=== PATIENT | female | born 1955 | race Caucasian/White ===

== ENCOUNTER 2018-03-31 15:43 | Outpatient (CLI) | payer MEDICARE, MEDICAID | END 2018-03-31 15:44 | disposition home or self-care (01) | LOC: BICRAD 15:43 | PROVIDERS: ATTEND Family Medicine | DX: M25.561 Pain in right knee (principal); M17.11 Unilateral primary osteoarthritis, right knee ==

== ENCOUNTER 2018-04-03 12:50 | Outpatient (CLI) | payer MEDICARE, MEDICAID | END 2018-04-03 12:51 | disposition home or self-care (01) | LOC: BICMAMMO 12:50 | PROVIDERS: ATTEND Obstetrics & Gynecology | DX: Z12.31 Encounter for screening mammogram for malignant neoplasm of breast (principal); Z80.3 Family history of malignant neoplasm of breast | CPT/HCPCS: 77063; 77067 ==

== ENCOUNTER 2018-04-17 08:23 | Outpatient (CLI) | payer MEDICARE, MEDICAID | END 2018-04-17 08:24 | disposition home or self-care (01) | LOC: BICMAMMO 08:23 | PROVIDERS: ATTEND Obstetrics & Gynecology | DX: R92.2 Inconclusive mammogram (principal) | CPT/HCPCS: 77065; G0279 ==

== ENCOUNTER 2018-12-16 13:07 | Outpatient (CLI) | payer MEDICARE, MEDICAID ==
--- NOTE | 2018-12-16 14:57 | MRI ---
MRI LUMBAR SPINE WITHOUT CONTRAST: Multiplanar, multisequential imaging of the lumbar spine obtained. INDICATION: Fall with injury to back. Low back pain. FINDINGS: The lumbar vertebrae maintain normal height. Disks paces are preserved. There is a slight anterolis thesis at L4-5. Loss of disk space is noted at T12-L1. At T12-L1, broad-based disk bulge flattens the thecal sac. No central canal stenosis and no conal im pingement. At L1-2, no significant disk bulge. No central canal or foraminal stenosis. At L2-3, no evidence of disk bulge. There is facet hypertrophy without central canal or foraminal st enosis. At L3-4, slight anterolisthesis as noted above measured at 2 mm. A broad-based disk bulge flattens t he thecal sac. There is facet and ligamentous hypertrophy resulting in moderate central canal stenos is. There is evidence of extruded disk with inferior migration from the L3-4 disk space centrally ex tending approximately 10 mm interior to the L3-4 disk space. At L4-5, slight anterolisthesis. Broad-based disk bulge. Prominent facet and ligamentous hypertroph y. Severe central canal stenosis. At L5-S1: No significant disk bulge. Prominent facet hypertrophy. Mild central canal stenosis due to facet and ligamentous hypertrophy. IMPRESSION: Moderate to severe central canal stenosis at L3-4 and severe central canal stenosis at L4-5 as descri bed above. Evidence of small disk extrusion at L3-4 with inferior migration. POS: [facility]
== END 2018-12-16 13:08 | disposition home or self-care (01) ==
LOC: SCSMRI 13:07
PROVIDERS: ATTEND Family Medicine
DX: M54.9 Dorsalgia, unspecified (principal); M48.061 Spinal stenosis, lumbar region without neurogenic claudication; M51.26 Other intervertebral disc displacement, lumbar region
CPT/HCPCS: 72148

== ENCOUNTER 2019-02-09 11:49 | Outpatient (CLI) | payer MEDICARE, MEDICAID ==
--- NOTE | 2019-02-09 15:32 | MRI ---
MRI CERVICAL SPINE WITHOUT CONTRAST: HISTORY: Uncontrolled tremors for 2 years. COMPARISON: None. TECHNIQUE: Cervical spine MRI is performed without intravenous Gadolinium administration. Multisequential, mult iplanar imaging is performed. FINDINGS: Limited evaluation of the sagittal and axial images due to motion degradation. There is appropriate T1 marrow signal intensity of the cervical vertebrae. Cervical spine vertebral body height is mainta ined. There is no fracture. No significant STIR hyperintensity to suggest vertebral body edema or l igamentous injury. 2.6 mm of anterolisthesis of C4 upon C5. Visualized brain parenchyma, cervicomedullary junction, cervical cord, and the upper thoracic cord salazar ve a normal size and signal intensity. C2-C3: No significant central canal stenosis or foraminal narrowing. C3-C4: No significant central canal stenosis. Mild bilateral facet hypertrophy. Mild right foramin al narrowing. Left neural foramen appears to be patent. C4-C5: No evidence of significant central canal stenosis or foraminal narrowing. C5-C6: There does appear to be a central disk-osteophyte complex that abuts and deforms the ventral thecal sac. Limited evaluation for any cord signal abnormality. There may be mild central canal amaury nosis. Right neural foramen and left neural foramen appear to be at least mildly narrowed bilaterall y. C6-C7: There appears to be a central disk bulge that abuts the thecal sac. No high-grade central ca nal stenosis or high-grade foraminal narrowing. C7-T1: No significant central canal stenosis or foraminal narrowing. IMPRESSION: Limited evaluation due to motion degradation. No high-grade central canal stenosis or high-grade for aminal narrowing. POS: [facility]
--- NOTE | 2019-02-09 15:33 | RAD ---
CERVICAL SPINE FOUR VIEWS: HISTORY: Pain. COMPARISON: None. FINDINGS: Lateral flexion, lateral extension, and Swimmer's views of the cervical spine are submitted for inter pretation. No prevertebral soft tissue swelling. In the lateral projection, the cervical spine is adequately assessed from C1 through C6, with evaluat ion of the C6-C7, as well as the C7-T1 levels, Based on the images provided, cervical spine vertebra l body height is maintained, and there is no fracture. There is anterolisthesis of C4 upon C5 (neutr al 1.9 mm, flexion 2.5 mm, extension 1 mm). IMPRESSION: Grade 1 anterolisthesis of C4 upon C5. POS: [facility]
== END 2019-02-09 11:50 | disposition home or self-care (01) ==
LOC: SCSMRI 11:49
PROVIDERS: ATTEND Neurological Surgery
DX: M51.26 Other intervertebral disc displacement, lumbar region (principal); M48.061 Spinal stenosis, lumbar region without neurogenic claudication; M43.12 Spondylolisthesis, cervical region
CPT/HCPCS: 72040; 72141

== ENCOUNTER 2021-04-22 18:07 | Emergency (ER) | payer OTHER, MEDICARE, MEDICAID ==
[2021-04-22] MEDS ORDERED: Ondansetron PF 4 MG/2 ML Vial ONE ×2 (18:24→19:45)
[2021-04-22 19:22] LABS: #Eosinphils 0.1 thou/uL (0.0-0.7); #Lymphocytes 2.8 thou/uL (1.20-3.40); #Monocytes 0.6 thou/uL (0.11-0.59); #Neutrophils 4.8 thou/uL (1.40-6.50); %Basophils 0.2 % (0.0-1.0); %Eosinophils 1.3 % (0.0-10.0); %Lymphocytes 33.6 % (21.0-51.0); %Monocytes 7.5 % (0.0-10.0); %Neutrophils 57.4 % (42.0-75.0); Hemoglobin 12.9 g/dL (12.0-16.0); Mean Corpuscular HGB CONC 33.8 g/dL (32.0-36.0); Mean Corpuscular Hemoglobin 29.6 pg (27.0-31.0); Mean Corpuscular Volume 87.4 fL (78.0-98.0); Mean Platelet Volume 7.9 fL (7.4-10.4); Platelet Count 181 thou/uL (130-400); RBC Distribution Width 12.3 % (11.5-14.5); Red Blood Cell (RBC) Count 4.36 mill/uL (4.20-5.40); White Blood Cell (WBC) Count 8.4 thou/uL (4.8-10.8)
[2021-04-22 19:43] LABS: ALT (SGPT) 19 U/L (8-55); AST (SGOT) 18 U/L (5-34); Albumin 3.9 g/dL (3.4-4.8); Alkaline Phosphatase 81 U/L (40-110); Anion Gap 12 mmol/L (10-20); BUN (Urea Nitrogen) 9 mg/dL (9.8-20.1); Bilirubin, Total 0.2 mg/dL (0.2-1.2); Calc. Creatinine Clearance 0 mL/min (70-130); Calcium 9.7 mg/dL (7.8-10.44); Carbon Dioxide 30 mmol/L (23-31); Chloride 105 mmol/L (98-107); Glucose 137 mg/dL (80-115); Protein, Total 6.9 g/dL (5.8-8.1); Sodium 143 mmol/L (136-145)
[2021-04-22] MEDS ORDERED: Acetaminophen 500 MG TAB ONE (19:51)
== END 2021-04-22 21:26 | disposition home or self-care (01) ==
LOC: ERS 18:07
DX: S09.90XA Unspecified injury of head, initial encounter (principal); V47.5XXA Car driver injured in collision with fixed or stationary object in traffic accident, initial encounter; E78.5 Hyperlipidemia, unspecified; I10 Essential (primary) hypertension; M19.90 Unspecified osteoarthritis, unspecified site; E66.9 Obesity, unspecified; J45.909 Unspecified asthma, uncomplicated
CPT/HCPCS: 36415; 70450; 71045; 71260; 72125; 74177; 80053; 85025; 96374; J2405

== ENCOUNTER 2021-08-08 14:30 | Outpatient (CLI) | payer MEDICARE, MEDICAID | END 2021-08-08 14:31 | disposition home or self-care (01) | LOC: BICMAMMO 14:30 | PROVIDERS: ATTEND Family Medicine | DX: Z12.31 Encounter for screening mammogram for malignant neoplasm of breast (principal); Z80.3 Family history of malignant neoplasm of breast | CPT/HCPCS: 77063; 77067 ==

== ENCOUNTER 2022-01-26 10:48 | Outpatient (CLI) | payer MEDICARE, MEDICAID | END 2022-01-26 10:49 | disposition home or self-care (01) | LOC: RAD 10:48 | PROVIDERS: ATTEND Family Medicine | DX: M79.642 Pain in left hand (principal) ==

== ENCOUNTER 2022-10-01 00:18 | Inpatient (IN) | payer OTHER, MEDICAID ==
[2022-10-01 00:50] VITALS: BMI 46.5
[2022-10-01] MEDS ORDERED: Acetaminophen 325 MG TAB PO PRN (01:03)
[2022-10-01] MEDS ORDERED: Calcium Carbonate 500 MG ChewTAB PO PRN (01:03)
[2022-10-01] MEDS ORDERED: Ondansetron ODT 4 MG TAB PO PRN (01:03)
[2022-10-01] MEDS: Ondansetron PF 4 MG/2 ML Vial IVP PRN ×2 (01:53→15:13)
[2022-10-01] MEDS ORDERED: Pantoprazole 40 MG VIAL IVP SCH ×2 (03:00→09:00)
[2022-10-01 05:40] LABS: #Lymphocytes 1.9 thou/uL (1.20-3.40); #Monocytes 0.8 thou/uL (0.11-0.59); #Neutrophils 10.1 thou/uL (1.40-6.50); %Basophils 0.3 % (0.0-1.0); %Eosinophils 0.3 % (0.0-10.0); %Lymphocytes 14.8 % (21.0-51.0); %Neutrophils 78.7 % (42.0-75.0); Hemoglobin 14.7 g/dL (12.0-16.0); Mean Corpuscular HGB CONC 31.9 g/dL (32.0-36.0); Mean Corpuscular Hemoglobin 28.2 pg (27.0-31.0); Mean Corpuscular Volume 88.5 fl (78.0-98.0); Mean Platelet Volume 8.1 fL (7.4-10.4); Platelet Count 238 thou/uL (130-400); RBC Distribution Width 12.7 % (11.5-14.5); White Blood Cell (WBC) Count 12.9 thou/uL (4.8-10.8)
[2022-10-01] MEDS: Levothyroxine Sodium 112 MCG TAB PO SCH (05:54)
[2022-10-01 06:04] LABS: Hemoglobin A1c 7.5 % (4.0-6.0)
[2022-10-01 06:08] LABS: ALT (SGPT) 22 U/L (8-55); AST (SGOT) 16 U/L (5-34); Albumin 4.3 g/dL (3.4-4.8); Alkaline Phosphatase 96 U/L (40-110); Anion Gap 12 mmol/L (10-20); BUN (Urea Nitrogen) 8 mg/dL (9.8-20.1); Bilirubin, Total 0.7 mg/dL (0.2-1.2); Calc. Creatinine Clearance 138 mL/min (70-130); Calcium 10.5 mg/dL (7.8-10.44); Carbon Dioxide 31 mmol/L (23-31); Chloride 101 mmol/L (98-107); Estimated GFR 72; Globulin 3.4 g/dL (2.4-3.5); Glucose 193 mg/dL (80-115); Potassium 3.4 mmol/L (3.5-5.1); Protein, Total 7.7 g/dL (5.8-8.1); Sodium 141 mmol/L (136-145)
[2022-10-01] MEDS ORDERED: Atorvastatin Calcium 40 MG TAB PO SCH (09:00)
[2022-10-01] MEDS ORDERED: Enoxaparin Sodium 40 MG/0.4 ML SYRINGE SC SCH ×2 (09:00→21:00)
[2022-10-01] MEDS ORDERED: Potassium Chloride 20 MEQ TAB PO SCH (10:00)
[2022-10-01] MEDS: DULoxetine 60 MG CAP PO SCH (10:00)
[2022-10-01] MEDS: Icosapent Ethyl 1 GM CAPSULE PO SCH ×2 (10:00→19:15)
[2022-10-01] MEDS: Gabapentin 300 MG CAP PO SCH ×2 (10:00→21:03)
[2022-10-01] MEDS: Losartan 25 MG TAB PO SCH (10:00)
[2022-10-01] MEDS: Aspirin 81 mg Enteric Coated Tablet PO SCH (10:01)
[2022-10-01] MEDS: Alogliptin 25 MG TAB PO SCH (10:01)
[2022-10-01] MEDS ORDERED: Iopamidol 370 76% 100 ML VIAL ONE (10:39)
[2022-10-01 12:36] LABS: Phosphorus 2.9 mg/dL (2.3-4.7)
[2022-10-01] MEDS: Mometasone 200 MCG/Formoterol 5 MCG 120 PUFF INHALER INH SCH (18:52)
[2022-10-01] MEDS: Atorvastatin Calcium 40 MG TAB PO SCH (21:03)
[2022-10-01] MEDS: tiZANidine HCl 4 MG TAB PO SCH (21:09)
[2022-10-01] MEDS ORDERED: Dextrose 50% Abboject 50 ML SYRINGE SLOW IVP PRN (21:28)
[2022-10-01] MEDS ORDERED: Dextrose 5% in Water 1,000 ML IV PRN (21:28)
[2022-10-01] MEDS: HumaLOG 300 UNITS/3 ML VIAL SC PRN (21:48)
[2022-10-02] MEDS: Levothyroxine Sodium 112 MCG TAB PO SCH (05:48)
[2022-10-02] MEDS: HumaLOG 300 UNITS/3 ML VIAL SC PRN ×3 (05:49→19:47)
[2022-10-02 06:50] LABS: #Eosinphils 0.1 thou/uL (0.0-0.7); #Lymphocytes 3.5 thou/uL (1.20-3.40); #Monocytes 0.7 thou/uL (0.11-0.59); #Neutrophils 5.1 thou/uL (1.40-6.50); %Basophils 0.2 % (0.0-1.0); %Eosinophils 0.9 % (0.0-10.0); %Lymphocytes 37.3 % (21.0-51.0); %Monocytes 7.2 % (0.0-10.0); %Neutrophils 54.5 % (42.0-75.0); Hemoglobin 12.6 g/dL (12.0-16.0); Mean Corpuscular HGB CONC 31.4 g/dL (32.0-36.0); Mean Corpuscular Hemoglobin 28.4 pg (27.0-31.0); Mean Corpuscular Volume 90.4 fl (78.0-98.0); Mean Platelet Volume 8.1 fL (7.4-10.4); Platelet Count 219 thou/uL (130-400); RBC Distribution Width 12.7 % (11.5-14.5); Red Blood Cell (RBC) Count 4.44 mill/uL (4.20-5.40); White Blood Cell (WBC) Count 9.3 thou/uL (4.8-10.8)
[2022-10-02] MEDS: Mometasone 200 MCG/Formoterol 5 MCG 120 PUFF INHALER INH SCH ×2 (08:14→18:42)
[2022-10-02] MEDS: Icosapent Ethyl 1 GM CAPSULE PO SCH ×2 (08:30→18:52)
[2022-10-02] MEDS: DULoxetine 60 MG CAP PO SCH (08:31)
[2022-10-02] MEDS: Gabapentin 300 MG CAP PO SCH ×2 (08:31→19:39)
[2022-10-02] MEDS: Losartan 25 MG TAB PO SCH (08:31)
[2022-10-02] MEDS: Aspirin 81 mg Enteric Coated Tablet PO SCH (08:31)
[2022-10-02] MEDS: Alogliptin 25 MG TAB PO SCH (08:32)
[2022-10-02 09:43] LABS: ALT (SGPT) 20 U/L (8-55); AST (SGOT) 16 U/L (5-34); Alkaline Phosphatase 90 U/L (40-110); Anion Gap 11 mmol/L (10-20); BUN (Urea Nitrogen) 19 mg/dL (9.8-20.1); Bilirubin, Total 0.7 mg/dL (0.2-1.2); Calc. Creatinine Clearance 81 mL/min (70-130); Calcium 10.4 mg/dL (7.8-10.44); Carbon Dioxide 31 mmol/L (23-31); Chloride 99 mmol/L (98-107); Estimated GFR 38; Glucose 192 mg/dL (80-115); Magnesium 2.1 mg/dL (1.6-2.6); Phosphorus 3.3 mg/dL (2.3-4.7); Potassium 3.6 mmol/L (3.5-5.1); Sodium 137 mmol/L (136-145)
[2022-10-02] MEDS ORDERED: Lactated Ringer's 1,000 ML IV SCH (10:00)
[2022-10-02] MEDS: Apixaban 2.5 MG TAB PO SCH (19:39)
[2022-10-02] MEDS: Atorvastatin Calcium 40 MG TAB PO SCH (19:39)
[2022-10-02] MEDS: tiZANidine HCl 4 MG TAB PO SCH (19:40)
[2022-10-03] MEDS: Levothyroxine Sodium 112 MCG TAB PO SCH (05:44)
[2022-10-03 06:11] LABS: #Eosinphils 0.1 thou/uL (0.0-0.7); #Lymphocytes 3.4 thou/uL (1.20-3.40); #Monocytes 0.8 thou/uL (0.11-0.59); #Neutrophils 4.4 thou/uL (1.40-6.50); %Basophils 0.4 % (0.0-1.0); %Eosinophils 1.4 % (0.0-10.0); %Lymphocytes 38.9 % (21.0-51.0); %Monocytes 9.1 % (0.0-10.0); %Neutrophils 50.2 % (42.0-75.0); Hemoglobin 12.8 g/dL (12.0-16.0); Mean Corpuscular HGB CONC 31.3 g/dL (32.0-36.0); Mean Corpuscular Hemoglobin 28.5 pg (27.0-31.0); Mean Corpuscular Volume 91.2 fl (78.0-98.0); Mean Platelet Volume 8.3 fL (7.4-10.4); Platelet Count 213 10x3/uL (130-400); RBC Distribution Width 12.6 % (11.5-14.5); Red Blood Cell (RBC) Count 4.49 mill/uL (4.20-5.40); White Blood Cell (WBC) Count 8.8 10x3/uL (4.8-10.8)
[2022-10-03 06:26] LABS: ALT (SGPT) 21 U/L (8-55); AST (SGOT) 14 U/L (5-34); Albumin 3.8 g/dL (3.4-4.8); Alkaline Phosphatase 79 U/L (40-110); Anion Gap 10 mmol/L (10-20); BUN (Urea Nitrogen) 27 mg/dL (9.8-20.1); Bilirubin, Total 0.7 mg/dL (0.2-1.2); Calc. Creatinine Clearance 95 mL/min (70-130); Calcium 10.2 mg/dL (7.8-10.44); Carbon Dioxide 30 mmol/L (23-31); Chloride 99 mmol/L (98-107); Estimated GFR 47; Globulin 2.9 g/dL (2.4-3.5); Glucose 248 mg/dL (80-115); Potassium 3.7 mmol/L (3.5-5.1); Protein, Total 6.7 g/dL (5.8-8.1); Sodium 135 mmol/L (136-145)
[2022-10-03] MEDS: Mometasone 200 MCG/Formoterol 5 MCG 120 PUFF INHALER INH SCH ×2 (06:43→18:43)
[2022-10-03] MEDS: Aspirin 81 mg Enteric Coated Tablet PO SCH (08:55)
[2022-10-03] MEDS: Alogliptin 25 MG TAB PO SCH (08:55)
[2022-10-03] MEDS: Icosapent Ethyl 1 GM CAPSULE PO SCH ×2 (08:55→17:40)
[2022-10-03] MEDS: Losartan 25 MG TAB PO SCH (08:55)
[2022-10-03] MEDS: Apixaban 2.5 MG TAB PO SCH (08:55)
[2022-10-03] MEDS: Gabapentin 300 MG CAP PO SCH ×2 (08:56→19:55)
[2022-10-03] MEDS: DULoxetine 60 MG CAP PO SCH (08:57)
[2022-10-03] MEDS: HumaLOG 300 UNITS/3 ML VIAL SC PRN ×3 (11:37→19:55)
[2022-10-03] MEDS: Apixaban 5 MG TAB PO SCH (19:54)
[2022-10-03] MEDS: tiZANidine HCl 4 MG TAB PO SCH (19:54)
[2022-10-03] MEDS: Atorvastatin Calcium 40 MG TAB PO SCH (19:55)
[2022-10-04 05:24] LABS: #Eosinphils 0.2 thou/uL (0.0-0.7); #Lymphocytes 3.1 thou/uL (1.20-3.40); #Monocytes 0.7 thou/uL (0.11-0.59); %Basophils 0.6 % (0.0-1.0); %Eosinophils 1.9 % (0.0-10.0); %Lymphocytes 38.4 % (21.0-51.0); %Neutrophils 50.1 % (42.0-75.0); Hemoglobin 11.9 g/dL (12.0-16.0); Mean Corpuscular HGB CONC 32.1 g/dL (32.0-36.0); Mean Corpuscular Hemoglobin 28.7 pg (27.0-31.0); Mean Corpuscular Volume 89.4 fl (78.0-98.0); Mean Platelet Volume 8.3 fL (7.4-10.4); Platelet Count 180 10x3/uL (130-400); RBC Distribution Width 12.4 % (11.5-14.5); Red Blood Cell (RBC) Count 4.14 mill/uL (4.20-5.40); White Blood Cell (WBC) Count 8.1 10x3/uL (4.8-10.8)
[2022-10-04 05:47] LABS: ALT (SGPT) 22 U/L (8-55); AST (SGOT) 12 U/L (5-34); Albumin 3.6 g/dL (3.4-4.8); Alkaline Phosphatase 71 U/L (40-110); Anion Gap 11 mmol/L (10-20); BUN (Urea Nitrogen) 30 mg/dL (9.8-20.1); Bilirubin, Total 0.6 mg/dL (0.2-1.2); Calc. Creatinine Clearance 122 mL/min (70-130); Calcium 10.1 mg/dL (7.8-10.44); Carbon Dioxide 30 mmol/L (23-31); Chloride 101 mmol/L (98-107); Estimated GFR 63; Globulin 2.6 g/dL (2.4-3.5); Glucose 182 mg/dL (80-115); Protein, Total 6.2 g/dL (5.8-8.1); Sodium 138 mmol/L (136-145)
[2022-10-04] MEDS: Levothyroxine Sodium 112 MCG TAB PO SCH (05:57)
[2022-10-04] MEDS: HumaLOG 300 UNITS/3 ML VIAL SC PRN ×2 (05:57→12:06)
[2022-10-04] MEDS: Mometasone 200 MCG/Formoterol 5 MCG 120 PUFF INHALER INH SCH (07:14)
[2022-10-04] MEDS: Icosapent Ethyl 1 GM CAPSULE PO SCH (08:55)
[2022-10-04] MEDS: Alogliptin 25 MG TAB PO SCH (08:55)
[2022-10-04] MEDS: Apixaban 5 MG TAB PO SCH (08:56)
[2022-10-04] MEDS: Aspirin 81 mg Enteric Coated Tablet PO SCH (08:56)
[2022-10-04] MEDS: Losartan 25 MG TAB PO SCH (08:56)
[2022-10-04] MEDS: DULoxetine 60 MG CAP PO SCH (08:56)
[2022-10-04] MEDS: Gabapentin 300 MG CAP PO SCH (08:59)
[2022-10-04] MEDS ORDERED: Senokot S 8.6-50 MG TAB PO PRN (09:58)
[2022-10-04] MEDS ORDERED: Polyethylene Glycol 3350 17 GM Packet PO SCH (10:30)
[2022-10-04 12:01] VITALS: BP 114/56; TEMP 97.4
== END 2022-10-04 16:55 | disposition home or self-care (01) | DRG 308 ==
LOC: NEURO 00:18 → OBSVTOIN 11:22
PROVIDERS: ADMIT Student in an Organized Health Care Education/Training Program; ATTEND Emergency Medicine
DX: I48.0 Paroxysmal atrial fibrillation (principal); J96.01 Acute respiratory failure with hypoxia; Z68.42 Body mass index [BMI] 45.0-49.9, adult; E11.40 Type 2 diabetes mellitus with diabetic neuropathy, unspecified; E78.5 Hyperlipidemia, unspecified; I10 Essential (primary) hypertension; M19.90 Unspecified osteoarthritis, unspecified site; R25.1 Tremor, unspecified; E66.9 Obesity, unspecified; J45.909 Unspecified asthma, uncomplicated; R91.8 Other nonspecific abnormal finding of lung field; E11.65 Type 2 diabetes mellitus with hyperglycemia; G47.33 Obstructive sleep apnea (adult) (pediatric); N14.11 Contrast-induced nephropathy; T50.8X5A Adverse effect of diagnostic agents, initial encounter; Z88.2 Allergy status to sulfonamides; Z79.899 Other long term (current) drug therapy; Z79.82 Long term (current) use of aspirin; Z79.890 Hormone replacement therapy; Z98.51 Tubal ligation status; Z98.42 Cataract extraction status, left eye; Z98.41 Cataract extraction status, right eye; Z87.891 Personal history of nicotine dependence
CPT/HCPCS: 36415; 36416; 71275; 80053; 83036; 83735; 83880; 84100; 85025; 85379; 87804; 93005; 93010; 94664; 96374; 96375; C9113; G0378; J1650; J1815; J2405; J7120; Q9967

== ENCOUNTER 2023-07-24 11:54 | Outpatient (CLI) | payer OTHER, MEDICAID ==
[2023-07-24 13:29] LABS: #Basophils 0.1 10x3/uL (0.0-0.2); #Eosinphils 0.1 10x3/uL (0.0-0.5); #Monocytes 0.9 10x3/uL (0.0-1.1); #Neutrophils 4.7 10x3/uL (1.5-8.4); %Basophils 0.5 % (0.0-2.0); %Eosinophils 1.2 % (0.0-6.0); %Monocytes 9.2 % (0.0-10.0); %Neutrophils 46.7 % (40.0-75.0); Hematocrit 45.5 % (34.9-44.5); Hemoglobin 13.9 g/dL (12.0-15.5); Mean Corpuscular HGB CONC 30.5 g/dL (32.0-36.0); Mean Corpuscular Hemoglobin 27.2 pg (27.0-33.0); Mean Platelet Volume 10.9 fl (7.4-10.4); Platelet Count 264 10x3/uL (150-450); RBC Distribution Width 13.1 % (11.5-14.5); Red Blood Cell (RBC) Count 5.11 10x6/uL (3.90-5.03)
[2023-07-24 14:08] LABS: ALT (SGPT) 22 U/L (8-55); AST (SGOT) 20 U/L (5-34); Albumin 4.2 g/dL (3.4-4.8); Alkaline Phosphatase 86 U/L (40-110); Anion Gap 17 mmol/L (10-20); BUN (Urea Nitrogen) 18 mg/dL (9.8-20.1); Bilirubin, Total 0.4 mg/dL (0.2-1.2); Calc. Creatinine Clearance 0 mL/min (70-130); Calcium 10.3 mg/dL (7.8-10.44); Carbon Dioxide 28 mmol/L (23-31); Chloride 106 mmol/L (98-107); Estimated GFR 43; Globulin 2.6 g/dL (2.4-3.5); Glucose 108 mg/dL (80-115); Potassium 5.5 mmol/L (3.5-5.1); Protein, Total 6.8 g/dL (5.8-8.1); Sodium 145 mmol/L (136-145)
== END 2023-07-24 11:55 | disposition home or self-care (01) ==
LOC: LABBT 11:54
PROVIDERS: ATTEND Internal Medicine Cardiovascular Disease
DX: Z01.812 Encounter for preprocedural laboratory examination (principal); I48.91 Unspecified atrial fibrillation
CPT/HCPCS: 80053; 85025

== ENCOUNTER 2023-07-26 09:43 | Day surgery (SDC) | payer OTHER, MEDICAID ==
[2023-07-24 12:35] VITALS: BMI 47.4
[2023-07-26 11:25] LABS: Potassium 5.7 mmol/L (3.5-5.1)
== END 2023-07-26 12:23 | disposition home or self-care (01) ==
LOC: SDC 09:43
PROVIDERS: ATTEND Internal Medicine Cardiovascular Disease
DX: I48.0 Paroxysmal atrial fibrillation (principal); I83.93 Asymptomatic varicose veins of bilateral lower extremities; E78.2 Mixed hyperlipidemia; I10 Essential (primary) hypertension; E11.9 Type 2 diabetes mellitus without complications; I35.8 Other nonrheumatic aortic valve disorders; R09.89 Other specified symptoms and signs involving the circulatory and respiratory systems; R60.0 Localized edema; J45.909 Unspecified asthma, uncomplicated; M19.90 Unspecified osteoarthritis, unspecified site; E07.9 Disorder of thyroid, unspecified; E66.01 Morbid (severe) obesity due to excess calories; Z68.42 Body mass index [BMI] 45.0-49.9, adult; Z87.891 Personal history of nicotine dependence; Z88.2 Allergy status to sulfonamides; Z79.890 Hormone replacement therapy; Z79.899 Other long term (current) drug therapy; Z79.82 Long term (current) use of aspirin; Z79.01 Long term (current) use of anticoagulants; Z53.9 Procedure and treatment not carried out, unspecified reason
CPT/HCPCS: 84132

== ENCOUNTER 2023-08-07 10:36 | Outpatient (CLI) | payer MEDICARE, MEDICAID ==
[2023-08-07 12:06] LABS: #Basophils 0.1 10x3/uL (0.0-0.2); #Eosinphils 0.1 10x3/uL (0.0-0.5); #Monocytes 0.8 10x3/uL (0.0-1.1); %Basophils 0.8 % (0.0-2.0); %Eosinophils 1.9 % (0.0-6.0); %Lymphocytes 31.7 % (18.0-47.0); %Monocytes 10.5 % (0.0-10.0); %Neutrophils 54.8 % (40.0-75.0); ALT (SGPT) 19 U/L (8-55); AST (SGOT) 19 U/L (5-34); Albumin 3.9 g/dL (3.4-4.8); Alkaline Phosphatase 84 U/L (40-110); Anion Gap 13 mmol/L (10-20); BUN (Urea Nitrogen) 11 mg/dL (9.8-20.1); Bilirubin, Total 0.5 mg/dL (0.2-1.2); Calc. Creatinine Clearance 0 mL/min (70-130); Calcium 9.5 mg/dL (7.8-10.44); Carbon Dioxide 28 mmol/L (23-31); Chloride 107 mmol/L (98-107); Estimated GFR 63; Globulin 2.7 g/dL (2.4-3.5); Glucose 130 mg/dL (80-115); Hematocrit 41.2 % (34.9-44.5); Hemoglobin 12.5 g/dL (12.0-15.5); Mean Corpuscular HGB CONC 30.3 g/dL (32.0-36.0); Mean Corpuscular Hemoglobin 26.7 pg (27.0-33.0); Mean Corpuscular Volume 87.8 fl (81.6-98.3); Mean Platelet Volume 10.3 fl (7.4-10.4); Platelet Count 195 10x3/uL (150-450); Potassium 4.7 mmol/L (3.5-5.1); Protein, Total 6.6 g/dL (5.8-8.1); RBC Distribution Width 13.4 % (11.5-14.5); Red Blood Cell (RBC) Count 4.69 10x6/uL (3.90-5.03); Sodium 143 mmol/L (136-145); White Blood Cell (WBC) Count 7.2 10x3/uL (3.5-10.5)
== END 2023-08-07 10:37 | disposition home or self-care (01) ==
LOC: LABBT 10:36
PROVIDERS: ATTEND Internal Medicine Cardiovascular Disease
DX: Z01.812 Encounter for preprocedural laboratory examination (principal); I48.91 Unspecified atrial fibrillation
CPT/HCPCS: 80053; 85025

== ENCOUNTER 2023-08-09 11:31 | Day surgery (SDC) | payer OTHER, MEDICAID ==
[2023-08-07 11:57] VITALS: BMI 47.4
[2023-08-09] MEDS ORDERED: PROPOFOL 200 MG/20 ML VIAL ONE (14:06)
[2023-08-09] MEDS ORDERED: Lidocaine 1% PF 5 ML VIAL ONE (14:06)
== END 2023-08-09 15:29 | disposition home or self-care (01) ==
LOC: SDC 11:31
PROVIDERS: ATTEND Internal Medicine Cardiovascular Disease
PROC: 5A2204Z Restoration of Cardiac Rhythm, Single (ICD-10-PCS; principal; 2023-08-09)
DX: I48.0 Paroxysmal atrial fibrillation (principal); I10 Essential (primary) hypertension; E78.5 Hyperlipidemia, unspecified; K21.9 Gastro-esophageal reflux disease without esophagitis; E11.9 Type 2 diabetes mellitus without complications; E03.9 Hypothyroidism, unspecified; J45.909 Unspecified asthma, uncomplicated; M19.90 Unspecified osteoarthritis, unspecified site; R60.0 Localized edema; I83.93 Asymptomatic varicose veins of bilateral lower extremities; I35.8 Other nonrheumatic aortic valve disorders; R09.89 Other specified symptoms and signs involving the circulatory and respiratory systems; Z87.891 Personal history of nicotine dependence; Z98.49 Cataract extraction status, unspecified eye; Z98.51 Tubal ligation status; Z88.1 Allergy status to other antibiotic agents; Z79.01 Long term (current) use of anticoagulants; Z79.890 Hormone replacement therapy; Z79.899 Other long term (current) drug therapy; Z88.2 Allergy status to sulfonamides
CPT/HCPCS: 92960; 93005; 93010; 93312; J2704

== ENCOUNTER 2024-04-08 16:00 | Outpatient (CLI) | payer MEDICARE | END 2024-04-08 16:01 | disposition home or self-care (01) | LOC: SLEEPLAB 16:00 | PROVIDERS: ATTEND Internal Medicine | DX: G47.33 Obstructive sleep apnea (adult) (pediatric) (principal); R09.02 Hypoxemia; R91.1 Solitary pulmonary nodule | CPT/HCPCS: 95810 ==